=== PATIENT | female | born 1960 | race Caucasian/White ===

== ENCOUNTER 2023-02-21 14:28 | Inpatient (IN) ==
[2023-02-21] MEDS ORDERED: IPRATROPIUM/ALBUTEROL 3 ML AMPUL.NEB NEB ONE (15:08)
[2023-02-21 15:38] LABS: Basophils # (Auto) 0.02 K/mcL (0.00-0.30); Basophils % (Auto) 0.2 % (0.0-2.0); Eosinophils # (Auto) 0 K/mcL (0.00-0.70); Eosinophils % (Auto) 0 % (0.0-7.0); Hematocrit 32.4 % (34.1-44.9); Hemoglobin 10.2 g/dL (11.2-15.7); Lymphocytes # (Auto) 0.92 K/mcL (1.50-4.80); Lymphocytes % (Auto) 9.5 % (15.5-49.0); Mean Corpuscular HGB Conc 31.5 g/dL (31.0-36.0); Mean Platelet Volume 9.3 fL (8.8-12.5); Monocytes # (Auto) 0.76 K/mcL (0.10-0.90); Monocytes % (Auto) 7.9 % (1.0-12.0); Neutrophils % (Auto) 80.5 % (38.0-78.0); Platelet Count 285 K/mcL (140-440); Red Cell Distribution Width 13.8 % (11.5-14.5); WBC 9.6 K/mcL (4.5-11.0)
[2023-02-21 16:07] LABS: ALT/SGPT 220 U/L (<40); AST/SGOT 761 U/L (<32); Albumin 4.5 gm/dL (3.2-5.2); Albumin/Globulin Ratio 1.4 (1.0-2.3); Alkaline Phosphatase 91 U/L (39-117); Bilirubin,Total 0.6 mg/dL (0.1-1.0); Blood Urea Nitrogen 37 mg/dL (8-23); Calcium 8.2 mg/dL (8.6-10.4); Carbon Dioxide 20 mmol/L (22-30); Chloride 79 mmol/L (96-108); Globulin 3.2 gm/dL (2.2-3.7); Glomerular Filtration Rate 13; Glucose 143 mg/dL (70-105)
[2023-02-21] MEDS ORDERED: ALBUTEROL SULFATE 2.5 MG/3 ML NEBULIZER NEB ONE ×2 (17:02→19:04)
[2023-02-21] MEDS ORDERED: 0.9 % SODIUM CHLORIDE 500 ML IV ONE (17:05)
[2023-02-21 18:29] LABS: ABG Methemoglobin 0.4 % (0.4-1.5); Total Hemoglobin 11.5 gm/Dl (12.0-15.0); VBG Base Excess -10 (-2-3); VBG HCO3 20.4 mmol/L (24.0-28.0); VBG Oxygen Saturation 74.9 % (40.0-70.0); VBG PCO2 64.5 mmHg (41.0-51.0); VBG PH 7.12 U (7.32-7.42); VBG PO2 54.5 mmHg (25.0-40.0); VBG Total CO2 22.3 mmol/L (25.0-29.0)
[2023-02-21] MEDS ORDERED: methylPREDNISolone SOD SUCC 125 MG/2 ML VIAL IV ONE (18:33)
[2023-02-21 18:50] LABS: Alcohol, Blood < 10.1 mg/dL; Alcohol,Blood < 0.010 gm/dL (<0.010)
[2023-02-21 21:31] LABS: Appearance,Urine HAZY (Clear); Bacteria,Urine FEW /hpf (0); Bilirubin,Urine Negative (Negative); Color,Urine AMBER; Culture Indicated,Urine No; Glucose,Urine (UA) Negative (Negative); Ketones,Urine 5 mg/dL (Negative); Leukocyte Esterase,Urine Negative /uL (Negative); Mucus,Urine FEW /hpf; Nitrate,Urine Negative (Negative); Protein,Urine 100 mg/dL (Negative); Specific Gravity,Urine 1.012 (1.000-1.035); Urine Blood 0.03 mg/dL (Negative); Urine Hyaline Cast 10 /lph (0-2); Urine RBC 1 /hpf (0-3); Urine Squamous Epithelial Cell 7 /hpf (0-4); Urine WBC 1 /hpf (0-4); Urobilinogen,Urine Negative
[2023-02-21 21:32] LABS: Blood Urea Nitrogen 38 mg/dL (8-23)
[2023-02-21 21:33] LABS: Uric Acid 14.2 mg/dL (2.5-8.0)
[2023-02-21] MEDS ORDERED: MAGNESIUM SULFATE 2 GM/50 ML BAG IV ONE ×2 (21:56→23:04)
[2023-02-21] MEDS ORDERED: cefTRIAXone 2 GM in DEXTROSE 5% IN WATER 50 ML IV ONE (21:56)
[2023-02-21] MEDS ORDERED: POTASSIUM CHLORIDE 40 MEQ in DEXTROSE 5% IN WATER 500 ML IV PRN (23:02)
[2023-02-21] MEDS ORDERED: POTASSIUM CHLORIDE 20 MEQ TABLET PO PRN (23:02)
[2023-02-21] MEDS ORDERED: ONDANSETRON 4 MG/2 ML VIAL IV PRN (23:02)
[2023-02-21] MEDS ORDERED: POLYETHYLENE GLYCOL 3350 17 GM PACKET PO PRN (23:02)
[2023-02-21] MEDS ORDERED: ENOXAPARIN 40 MG/0.4 ML SYRINGE SQ SCH (23:02)
[2023-02-21] MEDS ORDERED: DEXTROSE 31 GM ORAL.SUSP PO PRN (23:02)
[2023-02-21] MEDS ORDERED: SENNOSIDES 1 TABLET PO PRN (23:02)
[2023-02-21] MEDS ORDERED: DEXTROSE 50% 50 ML VIAL IV PRN (23:02)
[2023-02-21] MEDS ORDERED: cefTRIAXone 2 GM VIAL ONE (23:03)
[2023-02-21] MEDS ORDERED: methylPREDNISolone SOD SUCC 125 MG/2 ML VIAL ONE (23:07)
[2023-02-21] MEDS: BUDESONIDE 0.5 MG/2 ML AMPUL.NEB NEB SCH (23:35)
[2023-02-21] MEDS: IPRATROPIUM/ALBUTEROL 3 ML AMPUL.NEB NEB PRN (23:37)
[2023-02-21] MEDS: methylPREDNISolone SOD SUCC 125 MG/2 ML VIAL IV SCH (23:41)
[2023-02-21] MEDS ORDERED: ENOXAPARIN 40 MG/0.4 ML SYRINGE ONE (23:46)
[2023-02-21] MEDS: MAGNESIUM SULFATE 2 GM/50 ML BAG IV PRN (23:52)
[2023-02-22] MEDS: IPRATROPIUM/ALBUTEROL 3 ML AMPUL.NEB NEB SCH ×4 (01:29→18:20)
[2023-02-22] MEDS: 0.9 % SODIUM CHLORIDE 1,000 ML IV SCH ×3 (02:06→10:11)
[2023-02-22 06:09] LABS: Basophils # (Auto) 0.01 K/mcL (0.00-0.30); Basophils % (Auto) 0.1 % (0.0-2.0); Eosinophils # (Auto) 0 K/mcL (0.00-0.70); Eosinophils % (Auto) 0 % (0.0-7.0); Hematocrit 30.8 % (34.1-44.9); Hemoglobin 9.8 g/dL (11.2-15.7); Lymphocytes # (Auto) 0.48 K/mcL (1.50-4.80); Lymphocytes % (Auto) 4.7 % (15.5-49.0); Mean Cell Volume 90.3 fL (80.0-100.0); Mean Corpuscular HGB Conc 31.8 g/dL (31.0-36.0); Mean Platelet Volume 9.3 fL (8.8-12.5); Monocytes # (Auto) 0.21 K/mcL (0.10-0.90); Monocytes % (Auto) 2.1 % (1.0-12.0); Neutrophils % (Auto) 91.9 % (38.0-78.0); Platelet Count 265 K/mcL (140-440); RBC 3.41 M/mcL (3.59-5.38); Red Cell Distribution Width 13.7 % (11.5-14.5); WBC 10.2 K/mcL (4.5-11.0)
[2023-02-22] MEDS ORDERED: IPRATROPIUM/ALBUTEROL 3 ML AMPUL.NEB NEB ONE (06:17)
[2023-02-22] MEDS ORDERED: BUDESONIDE 0.5 MG/2 ML AMPUL.NEB ONE (06:18)
[2023-02-22] MEDS: BUDESONIDE 0.5 MG/2 ML AMPUL.NEB NEB SCH ×3 (06:18→19:53)
[2023-02-22 06:26] LABS: ALT/SGPT 185 U/L (<40); AST/SGOT 439 U/L (<32); Albumin 4.2 gm/dL (3.2-5.2); Albumin/Globulin Ratio 1.3 (1.0-2.3); Alkaline Phosphatase 84 U/L (39-117); Bilirubin,Direct 0.4 mg/dL (<0.3); Bilirubin,Total 0.5 mg/dL (0.1-1.0); Blood Urea Nitrogen 39 mg/dL (8-23); Calcium 8.1 mg/dL (8.6-10.4); Carbon Dioxide 22 mmol/L (22-30); Chloride 83 mmol/L (96-108); Globulin 3.2 gm/dL (2.2-3.7); Glomerular Filtration Rate 17; Glucose 181 mg/dL (70-105); Lactate Dehydrogenase 323 U/L (135-225); Phosphorous 6.2 mg/dL (2.5-4.5); Triglycerides 174 mg/dL (<150); Uric Acid 13.4 mg/dL (2.5-8.0)
[2023-02-22] MEDS: INSULIN LISPRO 1 UNIT/0.01 ML UNIT SQ SCH ×4 (08:04→21:50)
[2023-02-22] MEDS: DOCUSATE SODIUM 100 MG CAPSULE PO SCH ×2 (08:04→21:41)
[2023-02-22] MEDS: AZITHROMYCIN 250 MG TABLET PO SCH (08:29)
[2023-02-22] MEDS: methylPREDNISolone SOD SUCC 125 MG/2 ML VIAL IV SCH ×3 (08:29→21:40)
[2023-02-22] MEDS: ENOXAPARIN 30 MG/0.3 ML SYRINGE SQ SCH ×2 (08:30→21:39)
[2023-02-22] MEDS: METOPROLOL SUCCINATE 50 MG TAB.XL.24H PO SCH ×2 (09:20→21:38)
[2023-02-22] MEDS: LEVOTHYROXINE 50 MCG TABLET PO SCH (09:20)
[2023-02-22] MEDS: OMEPRAZOLE 20 MG CAPSULE PO SCH ×2 (09:20→16:47)
[2023-02-22] MEDS: busPIRone 15 MG TABLET PO SCH ×2 (09:21→21:38)
[2023-02-22] MEDS: PRIMIDONE 50 MG TABLET PO SCH ×2 (09:21→21:39)
[2023-02-22] MEDS: BUPRENORPHINE HCL 2 MG TAB.SUBL SL SCH ×2 (09:23→16:47)
[2023-02-22] MEDS: IPRATROPIUM/ALBUTEROL 3 ML AMPUL.NEB NEB PRN (10:20)
[2023-02-22] MEDS: DOXEPIN 25 MG CAPSULE PO SCH (21:38)
[2023-02-23] MEDS: BUPRENORPHINE HCL 2 MG TAB.SUBL SL SCH ×3 (00:43→20:43)
[2023-02-23] MEDS: IPRATROPIUM/ALBUTEROL 3 ML AMPUL.NEB NEB SCH ×4 (01:35→18:49)
[2023-02-23 06:30] LABS: ALT/SGPT 143 U/L (<40); AST/SGOT 139 U/L (<32); Albumin 4.3 gm/dL (3.2-5.2); Albumin/Globulin Ratio 1.4 (1.0-2.3); Alkaline Phosphatase 83 U/L (39-117); Bilirubin,Direct 0.2 mg/dL (<0.3); Bilirubin,Total 0.3 mg/dL (0.1-1.0); Blood Urea Nitrogen 39 mg/dL (8-23); Calcium 8.3 mg/dL (8.6-10.4); Carbon Dioxide 26 mmol/L (22-30); Chloride 87 mmol/L (96-108); Globulin 3.1 gm/dL (2.2-3.7); Glomerular Filtration Rate 27; Glucose 145 mg/dL (70-105); Lactate Dehydrogenase 230 U/L (135-225); Phosphorous 3.9 mg/dL (2.5-4.5); Triglycerides 162 mg/dL (<150); Uric Acid 10.8 mg/dL (2.5-8.0)
[2023-02-23] MEDS: INSULIN LISPRO 1 UNIT/0.01 ML UNIT SQ SCH ×4 (06:57→20:40)
[2023-02-23] MEDS: LEVOTHYROXINE 50 MCG TABLET PO SCH (06:58)
[2023-02-23] MEDS: OMEPRAZOLE 20 MG CAPSULE PO SCH ×2 (06:58→17:02)
[2023-02-23] MEDS ORDERED: 0.9 % SODIUM CHLORIDE 500 ML IV ONE (07:48)
[2023-02-23] MEDS: busPIRone 15 MG TABLET PO SCH ×2 (09:11→20:43)
[2023-02-23] MEDS: AZITHROMYCIN 250 MG TABLET PO SCH (09:12)
[2023-02-23] MEDS: DOCUSATE SODIUM 100 MG CAPSULE PO SCH ×2 (09:12→20:41)
[2023-02-23] MEDS: ENOXAPARIN 30 MG/0.3 ML SYRINGE SQ SCH ×2 (09:13→20:40)
[2023-02-23] MEDS: PRIMIDONE 50 MG TABLET PO SCH ×2 (09:13→20:43)
[2023-02-23] MEDS: METOPROLOL SUCCINATE 50 MG TAB.XL.24H PO SCH ×2 (09:14→20:42)
[2023-02-23] MEDS: methylPREDNISolone SOD SUCC 125 MG/2 ML VIAL IV SCH (09:20)
[2023-02-23] MEDS ORDERED: BUPRENORPHINE HCL 2 MG TAB.SUBL SL PRN (13:20)
[2023-02-23] MEDS: methylPREDNISolone SOD SUCC 40 MG/ML VIAL IV SCH ×2 (13:49→20:48)
[2023-02-23] MEDS: BUDESONIDE 0.5 MG/2 ML AMPUL.NEB NEB SCH ×2 (17:00→18:49)
[2023-02-23] MEDS: DOXEPIN 25 MG CAPSULE PO SCH (20:43)
[2023-02-24] MEDS: IPRATROPIUM/ALBUTEROL 3 ML AMPUL.NEB NEB SCH ×4 (01:02→19:47)
[2023-02-24] MEDS ORDERED: LORazepam 2 MG/ML VIAL ONE (04:03)
[2023-02-24] MEDS: LORazepam 2 MG/ML VIAL IV PRN ×3 (04:07→19:28)
[2023-02-24] MEDS: methylPREDNISolone SOD SUCC 40 MG/ML VIAL IV SCH ×2 (06:56→20:39)
[2023-02-24 07:10] LABS: ALT/SGPT 121 U/L (<40); AST/SGOT 99 U/L (<32); Albumin 3.9 gm/dL (3.2-5.2); Albumin/Globulin Ratio 1.4 (1.0-2.3); Alkaline Phosphatase 79 U/L (39-117); Bilirubin,Direct 0.3 mg/dL (<0.3); Bilirubin,Total 0.3 mg/dL (0.1-1.0); Blood Urea Nitrogen 36 mg/dL (8-23); Calcium 8.5 mg/dL (8.6-10.4); Carbon Dioxide 29 mmol/L (22-30); Chloride 91 mmol/L (96-108); Globulin 2.7 gm/dL (2.2-3.7); Glomerular Filtration Rate 40; Glucose 134 mg/dL (70-105); Lactate Dehydrogenase 210 U/L (135-225); Phosphorous 2.9 mg/dL (2.5-4.5); Triglycerides 150 mg/dL (<150); Uric Acid 9.6 mg/dL (2.5-8.0)
[2023-02-24] MEDS ORDERED: chlordiazePOXIDE 25 MG CAPSULE PO PRN (07:33)
[2023-02-24] MEDS: INSULIN LISPRO 1 UNIT/0.01 ML UNIT SQ SCH ×4 (07:39→20:38)
[2023-02-24] MEDS ORDERED: 0.9 % SODIUM CHLORIDE 750 ML IV ONE ×2 (07:41→08:46)
[2023-02-24] MEDS: ENOXAPARIN 30 MG/0.3 ML SYRINGE SQ SCH ×2 (08:23→20:38)
[2023-02-24] MEDS: 0.9 % SODIUM CHLORIDE 10 ML SYRINGE IV SCH ×3 (08:23→21:31)
[2023-02-24] MEDS: LEVOTHYROXINE 50 MCG TABLET PO SCH (08:24)
[2023-02-24] MEDS: busPIRone 15 MG TABLET PO SCH ×2 (08:24→19:10)
[2023-02-24] MEDS: DOCUSATE SODIUM 100 MG CAPSULE PO SCH ×2 (08:24→19:39)
[2023-02-24] MEDS: OMEPRAZOLE 20 MG CAPSULE PO SCH ×2 (08:24→16:52)
[2023-02-24] MEDS: AZITHROMYCIN 250 MG TABLET PO SCH (08:24)
[2023-02-24] MEDS: METOPROLOL SUCCINATE 50 MG TAB.XL.24H PO SCH ×2 (08:25→19:11)
[2023-02-24] MEDS: BUPRENORPHINE HCL 2 MG TAB.SUBL SL SCH ×2 (08:27→19:11)
[2023-02-24] MEDS: MULTIVIT,THER IRON,CA,FA & MIN 1 TABLET PO SCH (08:33)
[2023-02-24] MEDS: THIAMINE 100 MG TABLET PO SCH (08:33)
[2023-02-24] MEDS: FOLIC ACID 1 MG TABLET PO SCH (08:33)
[2023-02-24] MEDS: PRIMIDONE 50 MG TABLET PO SCH ×2 (08:34→19:10)
[2023-02-24 08:45] LABS: INR 1.1 (0.9-1.1); Prothrombin Time 15.1 sec (11.9-14.5)
[2023-02-24] MEDS: BUDESONIDE 0.5 MG/2 ML AMPUL.NEB NEB SCH ×2 (16:11→19:47)
[2023-02-24] MEDS: MAGNESIUM SULFATE 2 GM/50 ML BAG IV PRN (16:52)
[2023-02-24] MEDS: DOXEPIN 25 MG CAPSULE PO SCH (19:11)
[2023-02-25] MEDS: IPRATROPIUM/ALBUTEROL 3 ML AMPUL.NEB NEB SCH ×4 (01:05→18:15)
[2023-02-25] MEDS: 0.9 % SODIUM CHLORIDE 10 ML SYRINGE IV SCH ×3 (05:57→21:25)
[2023-02-25] MEDS: LORazepam 2 MG/ML VIAL IV PRN (06:25)
[2023-02-25] MEDS: BUDESONIDE 0.5 MG/2 ML AMPUL.NEB NEB SCH ×2 (06:35→21:29)
[2023-02-25 06:50] LABS: ALT/SGPT 135 U/L (<40); AST/SGOT 88 U/L (<32); Albumin 4.4 gm/dL (3.2-5.2); Albumin/Globulin Ratio 1.5 (1.0-2.3); Alkaline Phosphatase 89 U/L (39-117); Bilirubin,Direct 0.3 mg/dL (<0.3); Bilirubin,Total 0.3 mg/dL (0.1-1.0); Blood Urea Nitrogen 31 mg/dL (8-23); Calcium 8.8 mg/dL (8.6-10.4); Carbon Dioxide 31 mmol/L (22-30); Chloride 94 mmol/L (96-108); Glomerular Filtration Rate 43; Glucose 136 mg/dL (70-105); Lactate Dehydrogenase 209 U/L (135-225); Phosphorous 4.3 mg/dL (2.5-4.5); Triglycerides 168 mg/dL (<150); Uric Acid 8.6 mg/dL (2.5-8.0)
[2023-02-25] MEDS: INSULIN LISPRO 1 UNIT/0.01 ML UNIT SQ SCH ×4 (08:19→20:48)
[2023-02-25 08:47] LABS: Basophils # (Auto) 0.02 K/mcL (0.00-0.30); Basophils % (Auto) 0.2 % (0.0-2.0); Eosinophils # (Auto) 0.01 K/mcL (0.00-0.70); Eosinophils % (Auto) 0.1 % (0.0-7.0); Hematocrit 35.7 % (34.1-44.9); Hemoglobin 10.3 g/dL (11.2-15.7); Lymphocytes # (Auto) 1.24 K/mcL (1.50-4.80); Lymphocytes % (Auto) 9.4 % (15.5-49.0); Mean Cell Volume 98.3 fL (80.0-100.0); Mean Corpuscular HGB Conc 28.9 g/dL (31.0-36.0); Mean Platelet Volume 9.1 fL (8.8-12.5); Monocytes # (Auto) 0.98 K/mcL (0.10-0.90); Monocytes % (Auto) 7.4 % (1.0-12.0); Neutrophils % (Auto) 81.5 % (38.0-78.0); Platelet Count 328 K/mcL (140-440); RBC 3.63 M/mcL (3.59-5.38); Red Cell Distribution Width 14.8 % (11.5-14.5); WBC 13.2 K/mcL (4.5-11.0)
[2023-02-25] MEDS ORDERED: FUROSEMIDE 40 MG/4 ML VIAL IV ONE ×2 (09:13→16:00)
[2023-02-25] MEDS: MULTIVIT,THER IRON,CA,FA & MIN 1 TABLET PO SCH ×2 (09:57→10:27)
[2023-02-25] MEDS: FOLIC ACID 1 MG TABLET PO SCH ×2 (09:57→10:27)
[2023-02-25] MEDS: methylPREDNISolone SOD SUCC 40 MG/ML VIAL IV SCH (09:57)
[2023-02-25] MEDS: LEVOTHYROXINE 50 MCG TABLET PO SCH ×2 (09:57→10:27)
[2023-02-25] MEDS: DOCUSATE SODIUM 100 MG CAPSULE PO SCH ×2 (09:58→21:24)
[2023-02-25] MEDS: BUPRENORPHINE HCL 2 MG TAB.SUBL SL SCH ×3 (09:58→21:25)
[2023-02-25] MEDS: METOPROLOL SUCCINATE 50 MG TAB.XL.24H PO SCH ×3 (09:58→21:19)
[2023-02-25] MEDS: OMEPRAZOLE 20 MG CAPSULE PO SCH ×3 (09:58→17:00)
[2023-02-25] MEDS: THIAMINE 100 MG TABLET PO SCH ×2 (09:58→10:28)
[2023-02-25] MEDS: busPIRone 15 MG TABLET PO SCH ×3 (09:58→21:20)
[2023-02-25] MEDS: ENOXAPARIN 30 MG/0.3 ML SYRINGE SQ SCH ×2 (09:58→21:20)
[2023-02-25] MEDS: PRIMIDONE 50 MG TABLET PO SCH ×3 (09:59→21:23)
[2023-02-25] MEDS: DULoxetine 30 MG CAPSULE PO SCH (12:13)
[2023-02-25 12:39] LABS: Lymphocytes % 14 % (15-49); Monocytes % (Manual) 4 % (1-12); Nucleated Red Blood Cells 3 % (0-0); Platelet Estimate NORMAL (Normal); RBC Morphology NORMAL (Normal); Segmented Neutrophils % 82 % (38-78)
[2023-02-25] MEDS ORDERED: KETAMINE IV ONE (13:47)
[2023-02-25] MEDS ORDERED: SODIUM CHLORIDE 0.9% IV ONE (13:47)
[2023-02-25] MEDS: CEFEPIME 2 GM VIAL IV SCH ×2 (15:30→22:48)
[2023-02-25] MEDS: predniSONE 20 MG TABLET PO SCH (21:19)
[2023-02-25] MEDS: DOXAZOSIN 1 MG TABLET PO SCH (21:24)
[2023-02-25] MEDS: DOXEPIN 25 MG CAPSULE PO SCH (21:24)
[2023-02-25] MEDS ORDERED: DEXMEDETOMIDINE 100 ML IV ONE (22:36)
[2023-02-25] MEDS: DEXMEDETOMIDINE 400 MCG in PREMIX 1 BAG IV PRN (22:47)
[2023-02-26] MEDS: IPRATROPIUM/ALBUTEROL 3 ML AMPUL.NEB NEB SCH ×4 (01:00→18:24)
[2023-02-26] MEDS ORDERED: DEXMEDETOMIDINE 100 ML IV ONE ×8 (02:19→23:51)
[2023-02-26] MEDS: DEXMEDETOMIDINE 400 MCG in PREMIX 1 BAG IV PRN ×9 (02:22→23:52)
[2023-02-26] MEDS: 0.9 % SODIUM CHLORIDE 10 ML SYRINGE IV SCH ×3 (05:24→21:48)
[2023-02-26] MEDS: BUDESONIDE 0.5 MG/2 ML AMPUL.NEB NEB SCH ×3 (06:28→22:20)
[2023-02-26 07:21] LABS: Basophils # (Auto) 0.02 K/mcL (0.00-0.30); Basophils % (Auto) 0.1 % (0.0-2.0); Eosinophils # (Auto) 0.01 K/mcL (0.00-0.70); Eosinophils % (Auto) 0.1 % (0.0-7.0); Hematocrit 32.1 % (34.1-44.9); Hemoglobin 9.7 g/dL (11.2-15.7); Lymphocytes # (Auto) 0.68 K/mcL (1.50-4.80); Lymphocytes % (Auto) 4.2 % (15.5-49.0); Mean Cell Volume 93.9 fL (80.0-100.0); Mean Corpuscular HGB Conc 30.2 g/dL (31.0-36.0); Mean Platelet Volume 9.1 fL (8.8-12.5); Monocytes # (Auto) 1.18 K/mcL (0.10-0.90); Monocytes % (Auto) 7.3 % (1.0-12.0); Neutrophils % (Auto) 87.7 % (38.0-78.0); Platelet Count 259 K/mcL (140-440); RBC 3.42 M/mcL (3.59-5.38); Red Cell Distribution Width 14.5 % (11.5-14.5); WBC 16.2 K/mcL (4.5-11.0)
[2023-02-26 07:42] LABS: ALT/SGPT 88 U/L (<40); AST/SGOT 48 U/L (<32); Albumin 3.9 gm/dL (3.2-5.2); Albumin/Globulin Ratio 1.3 (1.0-2.3); Alkaline Phosphatase 90 U/L (39-117); Bilirubin,Direct 0.4 mg/dL (<0.3); Bilirubin,Total 0.6 mg/dL (0.1-1.0); Blood Urea Nitrogen 23 mg/dL (8-23); Calcium 8.9 mg/dL (8.6-10.4); Carbon Dioxide 33 mmol/L (22-30); Chloride 94 mmol/L (96-108); Globulin 3.1 gm/dL (2.2-3.7); Glomerular Filtration Rate 53; Glucose 179 mg/dL (70-105); Lactate Dehydrogenase 333 U/L (135-225); Phosphorous 1.3 mg/dL (2.5-4.5); Triglycerides 131 mg/dL (<150)
[2023-02-26] MEDS ORDERED: LORazepam 2 MG/ML VIAL IV PRN (08:04)
[2023-02-26] MEDS ORDERED: MAGNESIUM SULFATE 2 GM/50 ML BAG IV ONE (08:36)
[2023-02-26] MEDS: LEVOTHYROXINE 50 MCG TABLET PO SCH (08:38)
[2023-02-26] MEDS: OMEPRAZOLE 20 MG CAPSULE PO SCH ×2 (08:38→16:48)
[2023-02-26] MEDS: FUROSEMIDE 40 MG/4 ML VIAL IV SCH ×2 (08:50→15:52)
[2023-02-26] MEDS: INSULIN LISPRO 1 UNIT/0.01 ML UNIT SQ SCH ×4 (08:50→20:43)
[2023-02-26] MEDS: FOLIC ACID 1 MG TABLET PO SCH (08:51)
[2023-02-26] MEDS: DULoxetine 30 MG CAPSULE PO SCH (08:51)
[2023-02-26] MEDS: busPIRone 15 MG TABLET PO SCH ×2 (08:51→21:27)
[2023-02-26] MEDS: DOCUSATE SODIUM 100 MG CAPSULE PO SCH ×2 (08:51→21:27)
[2023-02-26] MEDS: MULTIVIT,THER IRON,CA,FA & MIN 1 TABLET PO SCH (08:54)
[2023-02-26] MEDS: PRIMIDONE 50 MG TABLET PO SCH ×2 (08:54→21:27)
[2023-02-26] MEDS: predniSONE 20 MG TABLET PO SCH (08:55)
[2023-02-26] MEDS: METOPROLOL SUCCINATE 50 MG TAB.XL.24H PO SCH ×2 (08:55→21:28)
[2023-02-26] MEDS: BUPRENORPHINE HCL 2 MG TAB.SUBL SL SCH ×3 (08:55→20:50)
[2023-02-26] MEDS: THIAMINE 100 MG TABLET PO SCH (08:55)
[2023-02-26] MEDS: CEFEPIME 2 GM VIAL IV SCH ×2 (08:59→20:49)
[2023-02-26] MEDS: ENOXAPARIN 30 MG/0.3 ML SYRINGE SQ SCH ×2 (08:59→20:50)
[2023-02-26] MEDS ORDERED: POTASSIUM PHOSPHATE 40 MEQ in DEXTROSE 5% IN WATER 500 ML IV ONE (09:00)
[2023-02-26] MEDS: acetaZOLAMIDE SOD 500 MG VIAL IV SCH (09:11)
[2023-02-26] MEDS: HYDROmorphone 1 MG/ML SYRINGE IV PRN ×2 (12:17→22:04)
[2023-02-26] MEDS: methylPREDNISolone SOD SUCC 40 MG/ML VIAL IV SCH (12:49)
[2023-02-26] MEDS: ACETAMINOPHEN 1,000 MG/100 ML BAG IV SCH ×2 (14:10→21:39)
[2023-02-26] MEDS: HALOPERIDOL LACTATE 5 MG/ML VIAL IV PRN ×2 (17:04→22:37)
[2023-02-26] MEDS: DOXAZOSIN 1 MG TABLET PO SCH (21:27)
[2023-02-26] MEDS: DOXEPIN 25 MG CAPSULE PO SCH (21:28)
[2023-02-27] MEDS: IPRATROPIUM/ALBUTEROL 3 ML AMPUL.NEB NEB SCH ×4 (00:13→19:01)
[2023-02-27] MEDS ORDERED: PREMIX 1 BAG IV ONE (02:10)
[2023-02-27] MEDS: DEXMEDETOMIDINE 400 MCG in PREMIX 1 BAG IV PRN ×2 (02:29→06:43)
[2023-02-27] MEDS: HALOPERIDOL LACTATE 5 MG/ML VIAL IV PRN (02:29)
[2023-02-27] MEDS: HYDROmorphone 1 MG/ML SYRINGE IV PRN (04:28)
[2023-02-27] MEDS: ACETAMINOPHEN 1,000 MG/100 ML BAG IV SCH ×3 (05:38→22:13)
[2023-02-27] MEDS: 0.9 % SODIUM CHLORIDE 10 ML SYRINGE IV SCH ×3 (05:39→20:11)
[2023-02-27 06:40] LABS: Basophils # (Auto) 0.03 K/mcL (0.00-0.30); Basophils % (Auto) 0.2 % (0.0-2.0); Hematocrit 29.8 % (34.1-44.9); Hemoglobin 9.2 g/dL (11.2-15.7); Lymphocytes # (Auto) 0.89 K/mcL (1.50-4.80); Lymphocytes % (Auto) 5.3 % (15.5-49.0); Mean Cell Volume 92.3 fL (80.0-100.0); Mean Corpuscular HGB Conc 30.9 g/dL (31.0-36.0); Monocytes # (Auto) 1.09 K/mcL (0.10-0.90); Monocytes % (Auto) 6.4 % (1.0-12.0); Neutrophils % (Auto) 84.5 % (38.0-78.0); Platelet Count 288 K/mcL (140-440); RBC 3.23 M/mcL (3.59-5.38); Red Cell Distribution Width 14.7 % (11.5-14.5); WBC 16.9 K/mcL (4.5-11.0)
[2023-02-27] MEDS: BUDESONIDE 0.5 MG/2 ML AMPUL.NEB NEB SCH ×2 (06:52→19:01)
[2023-02-27 06:59] LABS: ALT/SGPT 58 U/L (<40); AST/SGOT 23 U/L (<32); Albumin 3.3 gm/dL (3.2-5.2); Alkaline Phosphatase 77 U/L (39-117); Bilirubin,Direct 0.4 mg/dL (<0.3); Bilirubin,Total 0.6 mg/dL (0.1-1.0); Blood Urea Nitrogen 23 mg/dL (8-23); Calcium 8.8 mg/dL (8.6-10.4); Carbon Dioxide 35 mmol/L (22-30); Chloride 89 mmol/L (96-108); Globulin 3.4 gm/dL (2.2-3.7); Glomerular Filtration Rate 53; Glucose 138 mg/dL (70-105); Lactate Dehydrogenase 189 U/L (135-225); Phosphorous 2.5 mg/dL (2.5-4.5); Triglycerides 130 mg/dL (<150); Uric Acid 7.5 mg/dL (2.5-8.0)
[2023-02-27] MEDS: INSULIN LISPRO 1 UNIT/0.01 ML UNIT SQ SCH ×4 (07:52→20:16)
[2023-02-27] MEDS: OMEPRAZOLE 20 MG CAPSULE PO SCH ×2 (07:58→17:04)
[2023-02-27] MEDS: LEVOTHYROXINE 50 MCG TABLET PO SCH (07:58)
[2023-02-27] MEDS: busPIRone 15 MG TABLET PO SCH ×2 (08:22→20:11)
[2023-02-27] MEDS: DULoxetine 30 MG CAPSULE PO SCH (08:22)
[2023-02-27] MEDS: DOCUSATE SODIUM 100 MG CAPSULE PO SCH ×2 (08:22→20:11)
[2023-02-27] MEDS: THIAMINE 100 MG TABLET PO SCH (08:23)
[2023-02-27] MEDS: PRIMIDONE 50 MG TABLET PO SCH ×2 (08:23→20:08)
[2023-02-27] MEDS: METOPROLOL SUCCINATE 50 MG TAB.XL.24H PO SCH ×2 (08:23→20:08)
[2023-02-27] MEDS: MULTIVIT,THER IRON,CA,FA & MIN 1 TABLET PO SCH (08:23)
[2023-02-27] MEDS: FOLIC ACID 1 MG TABLET PO SCH (08:23)
[2023-02-27] MEDS: acetaZOLAMIDE SOD 500 MG VIAL IV SCH (10:40)
[2023-02-27] MEDS: CEFEPIME 2 GM VIAL IV SCH ×2 (10:40→20:07)
[2023-02-27] MEDS: FUROSEMIDE 40 MG/4 ML VIAL IV SCH ×2 (10:40→16:45)
[2023-02-27] MEDS: BUPRENORPHINE HCL 2 MG TAB.SUBL SL SCH ×2 (10:41→20:09)
[2023-02-27] MEDS: ENOXAPARIN 30 MG/0.3 ML SYRINGE SQ SCH ×2 (10:41→20:07)
[2023-02-27] MEDS: methylPREDNISolone SOD SUCC 40 MG/ML VIAL IV SCH (10:52)
[2023-02-27] MEDS: DOXAZOSIN 1 MG TABLET PO SCH (20:08)
[2023-02-27] MEDS: POTASSIUM CHLORIDE 20 MEQ TABLET PO PRN (20:08)
[2023-02-27] MEDS: DOXEPIN 25 MG CAPSULE PO SCH (20:10)
[2023-02-27] MEDS: MAGNESIUM SULFATE 2 GM/50 ML BAG IV PRN (20:17)
[2023-02-28] MEDS: IPRATROPIUM/ALBUTEROL 3 ML AMPUL.NEB NEB SCH ×4 (01:02→19:13)
[2023-02-28] MEDS: 0.9 % SODIUM CHLORIDE 10 ML SYRINGE IV SCH ×3 (05:22→20:03)
[2023-02-28] MEDS: ACETAMINOPHEN 1,000 MG/100 ML BAG IV SCH ×3 (05:32→21:01)
[2023-02-28 06:45] LABS: Basophils # (Auto) 0.03 K/mcL (0.00-0.30); Basophils % (Auto) 0.2 % (0.0-2.0); Eosinophils # (Auto) 0.64 K/mcL (0.00-0.70); Eosinophils % (Auto) 4.2 % (0.0-7.0); Hematocrit 32.6 % (34.1-44.9); Lymphocytes # (Auto) 0.93 K/mcL (1.50-4.80); Lymphocytes % (Auto) 6.1 % (15.5-49.0); Mean Cell Volume 92.4 fL (80.0-100.0); Mean Corpuscular HGB Conc 30.7 g/dL (31.0-36.0); Mean Platelet Volume 9.3 fL (8.8-12.5); Monocytes % (Auto) 7.9 % (1.0-12.0); Neutrophils % (Auto) 80.4 % (38.0-78.0); Platelet Count 344 K/mcL (140-440); RBC 3.53 M/mcL (3.59-5.38); Red Cell Distribution Width 14.8 % (11.5-14.5); WBC 15.3 K/mcL (4.5-11.0)
[2023-02-28] MEDS: BUDESONIDE 0.5 MG/2 ML AMPUL.NEB NEB SCH ×2 (07:01→19:13)
[2023-02-28 07:02] LABS: ALT/SGPT 43 U/L (<40); AST/SGOT 20 U/L (<32); Albumin 3.3 gm/dL (3.2-5.2); Albumin/Globulin Ratio 0.9 (1.0-2.3); Alkaline Phosphatase 80 U/L (39-117); Bilirubin,Direct 0.3 mg/dL (<0.3); Bilirubin,Total 0.4 mg/dL (0.1-1.0); Blood Urea Nitrogen 26 mg/dL (8-23); Calcium 9.2 mg/dL (8.6-10.4); Carbon Dioxide 37 mmol/L (22-30); Chloride 90 mmol/L (96-108); Globulin 3.7 gm/dL (2.2-3.7); Glomerular Filtration Rate 53; Glucose 109 mg/dL (70-105); Lactate Dehydrogenase 170 U/L (135-225); Phosphorous 3.7 mg/dL (2.5-4.5); Triglycerides 188 mg/dL (<150); Uric Acid 7.4 mg/dL (2.5-8.0)
[2023-02-28] MEDS: INSULIN LISPRO 1 UNIT/0.01 ML UNIT SQ SCH ×4 (07:38→20:13)
[2023-02-28] MEDS: LEVOTHYROXINE 50 MCG TABLET PO SCH (07:47)
[2023-02-28] MEDS: OMEPRAZOLE 20 MG CAPSULE PO SCH ×2 (07:47→16:52)
[2023-02-28] MEDS: DOCUSATE SODIUM 100 MG CAPSULE PO SCH ×2 (08:37→19:50)
[2023-02-28] MEDS: busPIRone 15 MG TABLET PO SCH ×2 (08:55→20:02)
[2023-02-28] MEDS: BUPRENORPHINE HCL 2 MG TAB.SUBL SL SCH ×2 (08:56→20:02)
[2023-02-28] MEDS: METOPROLOL SUCCINATE 50 MG TAB.XL.24H PO SCH ×2 (08:56→20:02)
[2023-02-28] MEDS: PRIMIDONE 50 MG TABLET PO SCH ×2 (08:56→20:02)
[2023-02-28] MEDS: MULTIVIT,THER IRON,CA,FA & MIN 1 TABLET PO SCH (08:57)
[2023-02-28] MEDS: ENOXAPARIN 30 MG/0.3 ML SYRINGE SQ SCH ×2 (08:57→20:03)
[2023-02-28] MEDS: CEFEPIME 2 GM VIAL IV SCH ×2 (08:57→20:01)
[2023-02-28] MEDS: THIAMINE 100 MG TABLET PO SCH (08:57)
[2023-02-28] MEDS: FUROSEMIDE 40 MG/4 ML VIAL IV SCH (08:58)
[2023-02-28] MEDS: FOLIC ACID 1 MG TABLET PO SCH (08:58)
[2023-02-28] MEDS: DULoxetine 30 MG CAPSULE PO SCH (08:58)
[2023-02-28] MEDS: HYDROmorphone 1 MG/ML SYRINGE IV PRN ×2 (09:03→20:14)
[2023-02-28] MEDS: acetaZOLAMIDE SOD 500 MG VIAL IV SCH (09:03)
[2023-02-28] MEDS: FUROSEMIDE 40 MG TABLET PO SCH (16:53)
[2023-02-28] MEDS: DOXAZOSIN 1 MG TABLET PO SCH (20:02)
[2023-02-28] MEDS: DOXEPIN 25 MG CAPSULE PO SCH (20:03)
[2023-03-01] MEDS: IPRATROPIUM/ALBUTEROL 3 ML AMPUL.NEB NEB SCH ×4 (01:10→19:13)
[2023-03-01] MEDS: HYDROmorphone 1 MG/ML SYRINGE IV PRN ×2 (02:13→21:02)
[2023-03-01] MEDS: 0.9 % SODIUM CHLORIDE 10 ML SYRINGE IV SCH ×3 (05:03→22:00)
[2023-03-01] MEDS: ACETAMINOPHEN 1,000 MG/100 ML BAG IV SCH (05:03)
[2023-03-01 06:20] LABS: Basophils # (Auto) 0.03 K/mcL (0.00-0.30); Basophils % (Auto) 0.3 % (0.0-2.0); Eosinophils # (Auto) 0.47 K/mcL (0.00-0.70); Eosinophils % (Auto) 4.3 % (0.0-7.0); Hematocrit 31.1 % (34.1-44.9); Hemoglobin 9.5 g/dL (11.2-15.7); Lymphocytes # (Auto) 1.22 K/mcL (1.50-4.80); Lymphocytes % (Auto) 11.1 % (15.5-49.0); Mean Cell Volume 92.3 fL (80.0-100.0); Mean Corpuscular HGB Conc 30.5 g/dL (31.0-36.0); Mean Platelet Volume 9.3 fL (8.8-12.5); Monocytes # (Auto) 1.19 K/mcL (0.10-0.90); Monocytes % (Auto) 10.8 % (1.0-12.0); Neutrophils % (Auto) 72.1 % (38.0-78.0); Platelet Count 328 K/mcL (140-440); RBC 3.37 M/mcL (3.59-5.38); Red Cell Distribution Width 14.9 % (11.5-14.5)
[2023-03-01 06:35] LABS: ALT/SGPT 28 U/L (<40); AST/SGOT 18 U/L (<32); Albumin 2.9 gm/dL (3.2-5.2); Albumin/Globulin Ratio 0.9 (1.0-2.3); Alkaline Phosphatase 82 U/L (39-117); Bilirubin,Direct < 0.2 mg/dL (0-0.3); Bilirubin,Total 0.3 mg/dL (0.1-1.0); Blood Urea Nitrogen 26 mg/dL (8-23); Calcium 9.2 mg/dL (8.6-10.4); Carbon Dioxide 35 mmol/L (22-30); Chloride 91 mmol/L (96-108); Globulin 3.4 gm/dL (2.2-3.7); Glomerular Filtration Rate 60; Glucose 116 mg/dL (70-105); Lactate Dehydrogenase 170 U/L (135-225); Phosphorous 3.3 mg/dL (2.5-4.5); Triglycerides 188 mg/dL (<150); Uric Acid 6.6 mg/dL (2.5-8.0)
[2023-03-01] MEDS: FUROSEMIDE 40 MG TABLET PO SCH ×2 (07:21→16:03)
[2023-03-01] MEDS: OMEPRAZOLE 20 MG CAPSULE PO SCH ×2 (07:21→16:03)
[2023-03-01] MEDS: LEVOTHYROXINE 50 MCG TABLET PO SCH (07:21)
[2023-03-01] MEDS: INSULIN LISPRO 1 UNIT/0.01 ML UNIT SQ SCH ×4 (07:22→20:53)
[2023-03-01] MEDS: BUDESONIDE 0.5 MG/2 ML AMPUL.NEB NEB SCH ×2 (08:00→19:13)
[2023-03-01] MEDS ORDERED: POTASSIUM CHLORIDE 20 MEQ PACKET PO SCH (08:00)
[2023-03-01] MEDS: DULoxetine 30 MG CAPSULE PO SCH (08:23)
[2023-03-01] MEDS: BUPRENORPHINE HCL 2 MG TAB.SUBL SL SCH ×2 (08:23→20:54)
[2023-03-01] MEDS: THIAMINE 100 MG TABLET PO SCH (08:23)
[2023-03-01] MEDS: FOLIC ACID 1 MG TABLET PO SCH (08:23)
[2023-03-01] MEDS: DOCUSATE SODIUM 100 MG CAPSULE PO SCH ×2 (08:23→20:41)
[2023-03-01] MEDS: busPIRone 15 MG TABLET PO SCH ×2 (08:23→20:52)
[2023-03-01] MEDS: MULTIVIT,THER IRON,CA,FA & MIN 1 TABLET PO SCH (08:23)
[2023-03-01] MEDS: METOPROLOL SUCCINATE 50 MG TAB.XL.24H PO SCH ×2 (08:24→20:52)
[2023-03-01] MEDS: ENOXAPARIN 30 MG/0.3 ML SYRINGE SQ SCH ×2 (08:24→20:53)
[2023-03-01] MEDS: PRIMIDONE 50 MG TABLET PO SCH ×2 (08:24→21:29)
[2023-03-01] MEDS: CEFEPIME 2 GM VIAL IV SCH ×2 (08:33→21:02)
[2023-03-01] MEDS: ACETAMINOPHEN 325 MG TABLET PO PRN ×2 (11:04→19:07)
[2023-03-01] MEDS: DOXAZOSIN 1 MG TABLET PO SCH (20:51)
[2023-03-01] MEDS: DOXEPIN 25 MG CAPSULE PO SCH (21:29)
[2023-03-02] MEDS: IPRATROPIUM/ALBUTEROL 3 ML AMPUL.NEB NEB SCH ×4 (01:00→21:00)
[2023-03-02] MEDS: ACETAMINOPHEN 325 MG TABLET PO PRN ×3 (03:02→21:06)
[2023-03-02] MEDS: BUDESONIDE 0.5 MG/2 ML AMPUL.NEB NEB SCH ×2 (07:30→21:00)
[2023-03-02] MEDS: 0.9 % SODIUM CHLORIDE 10 ML SYRINGE IV SCH ×3 (07:49→21:09)
[2023-03-02] MEDS: INSULIN LISPRO 1 UNIT/0.01 ML UNIT SQ SCH ×4 (07:50→20:56)
[2023-03-02] MEDS: LEVOTHYROXINE 50 MCG TABLET PO SCH (07:52)
[2023-03-02] MEDS: FUROSEMIDE 40 MG TABLET PO SCH ×2 (07:52→16:09)
[2023-03-02] MEDS: OMEPRAZOLE 20 MG CAPSULE PO SCH ×2 (07:52→16:09)
[2023-03-02] MEDS: PRIMIDONE 50 MG TABLET PO SCH ×2 (08:10→21:03)
[2023-03-02] MEDS: busPIRone 15 MG TABLET PO SCH ×2 (08:10→21:05)
[2023-03-02] MEDS: DULoxetine 30 MG CAPSULE PO SCH (08:10)
[2023-03-02] MEDS: THIAMINE 100 MG TABLET PO SCH (08:10)
[2023-03-02] MEDS: METOPROLOL SUCCINATE 50 MG TAB.XL.24H PO SCH ×2 (08:10→21:07)
[2023-03-02] MEDS: FOLIC ACID 1 MG TABLET PO SCH (08:10)
[2023-03-02] MEDS: MULTIVIT,THER IRON,CA,FA & MIN 1 TABLET PO SCH (08:10)
[2023-03-02] MEDS: DOCUSATE SODIUM 100 MG CAPSULE PO SCH ×2 (08:10→21:07)
[2023-03-02] MEDS: BUPRENORPHINE HCL 2 MG TAB.SUBL SL SCH ×2 (08:10→21:04)
[2023-03-02] MEDS: ENOXAPARIN 30 MG/0.3 ML SYRINGE SQ SCH ×2 (08:18→21:02)
[2023-03-02] MEDS: CEFEPIME 2 GM VIAL IV SCH (08:18)
[2023-03-02] MEDS: HYDROmorphone 1 MG/ML SYRINGE IV PRN (14:28)
[2023-03-02] MEDS: DOXEPIN 25 MG CAPSULE PO SCH (21:05)
[2023-03-02] MEDS: DOXAZOSIN 1 MG TABLET PO SCH (21:07)
[2023-03-03] MEDS: IPRATROPIUM/ALBUTEROL 3 ML AMPUL.NEB NEB SCH ×2 (01:34→07:00)
[2023-03-03] MEDS: 0.9 % SODIUM CHLORIDE 10 ML SYRINGE IV SCH ×3 (05:59→20:25)
[2023-03-03 06:17] LABS: ABG Methemoglobin 0.3 % (0.4-1.5); Total Hemoglobin 10.8 gm/Dl (12.0-15.0); VBG Base Excess 8 (-2-3); VBG HCO3 33.4 mmol/L (24.0-28.0); VBG Oxygen Saturation 86.8 % (40.0-70.0); VBG PCO2 52.9 mmHg (41.0-51.0); VBG PH 7.42 U (7.32-7.42); VBG PO2 59.6 mmHg (25.0-40.0)
[2023-03-03 06:20] LABS: Basophils # (Auto) 0.11 K/mcL (0.00-0.30); Eosinophils # (Auto) 0.33 K/mcL (0.00-0.70); Hematocrit 28.7 % (34.1-44.9); Hemoglobin 9.1 g/dL (11.2-15.7); Lymphocytes # (Auto) 2.07 K/mcL (1.50-4.80); Lymphocytes % (Auto) 18.8 % (15.5-49.0); Mean Cell Volume 87.8 fL (80.0-100.0); Mean Corpuscular HGB Conc 31.7 g/dL (31.0-36.0); Mean Platelet Volume 9.3 fL (8.8-12.5); Monocytes # (Auto) 1.27 K/mcL (0.10-0.90); Monocytes % (Auto) 11.6 % (1.0-12.0); Platelet Count 310 K/mcL (140-440); RBC 3.27 M/mcL (3.59-5.38); Red Cell Distribution Width 14.6 % (11.5-14.5)
[2023-03-03 06:50] LABS: ALT/SGPT 22 U/L (<40); AST/SGOT 24 U/L (<32); Albumin/Globulin Ratio 0.9 (1.0-2.3); Alkaline Phosphatase 102 U/L (39-117); Bilirubin,Direct < 0.2 mg/dL (0-0.3); Bilirubin,Total 0.3 mg/dL (0.1-1.0); Blood Urea Nitrogen 18 mg/dL (8-23); Calcium 8.8 mg/dL (8.6-10.4); Carbon Dioxide 34 mmol/L (22-30); Chloride 90 mmol/L (96-108); Globulin 3.2 gm/dL (2.2-3.7); Glomerular Filtration Rate 68; Glucose 114 mg/dL (70-105); Lactate Dehydrogenase 221 U/L (135-225); Phosphorous 3.4 mg/dL (2.5-4.5); Triglycerides 210 mg/dL (<150); Uric Acid 6.3 mg/dL (2.5-8.0)
[2023-03-03] MEDS: BUDESONIDE 0.5 MG/2 ML AMPUL.NEB NEB SCH (07:00)
[2023-03-03] MEDS: INSULIN LISPRO 1 UNIT/0.01 ML UNIT SQ SCH ×4 (07:17→20:20)
[2023-03-03] MEDS: FUROSEMIDE 40 MG TABLET PO SCH ×2 (07:27→16:14)
[2023-03-03] MEDS: POTASSIUM CHLORIDE 20 MEQ TABLET PO PRN (07:28)
[2023-03-03] MEDS: LEVOTHYROXINE 50 MCG TABLET PO SCH (07:28)
[2023-03-03] MEDS: OMEPRAZOLE 20 MG CAPSULE PO SCH ×2 (07:29→16:28)
[2023-03-03] MEDS: MAGNESIUM SULFATE 2 GM/50 ML BAG IV PRN (07:31)
[2023-03-03] MEDS: THIAMINE 100 MG TABLET PO SCH (08:16)
[2023-03-03] MEDS: BUPRENORPHINE HCL 2 MG TAB.SUBL SL SCH ×2 (08:16→20:24)
[2023-03-03] MEDS: busPIRone 15 MG TABLET PO SCH ×2 (08:16→20:22)
[2023-03-03] MEDS: DOCUSATE SODIUM 100 MG CAPSULE PO SCH ×3 (08:17→20:26)
[2023-03-03] MEDS: METOPROLOL SUCCINATE 50 MG TAB.XL.24H PO SCH ×2 (08:17→20:23)
[2023-03-03] MEDS: MULTIVIT,THER IRON,CA,FA & MIN 1 TABLET PO SCH (08:17)
[2023-03-03] MEDS: DULoxetine 30 MG CAPSULE PO SCH (08:17)
[2023-03-03] MEDS: ENOXAPARIN 30 MG/0.3 ML SYRINGE SQ SCH ×2 (08:17→20:21)
[2023-03-03] MEDS: FOLIC ACID 1 MG TABLET PO SCH (08:17)
[2023-03-03] MEDS: PRIMIDONE 50 MG TABLET PO SCH ×2 (08:18→20:24)
[2023-03-03] MEDS: HYDROmorphone 1 MG/ML SYRINGE IV PRN (09:21)
[2023-03-03] MEDS: FLUTICASONE/SALMETEROL 250/50 INHALER #14 INH SCH ×2 (16:04→20:14)
[2023-03-03] MEDS: ACETAMINOPHEN 325 MG TABLET PO PRN (18:41)
[2023-03-03] MEDS: DOXAZOSIN 1 MG TABLET PO SCH (20:22)
[2023-03-03] MEDS: DOXEPIN 25 MG CAPSULE PO SCH (20:24)
[2023-03-04] MEDS: 0.9 % SODIUM CHLORIDE 10 ML SYRINGE IV SCH (06:03)
[2023-03-04 06:19] LABS: ALT/SGPT 21 U/L (<40); AST/SGOT 25 U/L (<32); Albumin 2.9 gm/dL (3.2-5.2); Albumin/Globulin Ratio 0.8 (1.0-2.3); Alkaline Phosphatase 91 U/L (39-117); Bilirubin,Direct < 0.2 mg/dL (0-0.3); Bilirubin,Total < 0.2 mg/dL (0.1-1.0); Blood Urea Nitrogen 18 mg/dL (8-23); Calcium 9.2 mg/dL (8.6-10.4); Carbon Dioxide 31 mmol/L (22-30); Chloride 90 mmol/L (96-108); Globulin 3.7 gm/dL (2.2-3.7); Glomerular Filtration Rate 68; Glucose 116 mg/dL (70-105); Lactate Dehydrogenase 161 U/L (135-225); Phosphorous 4.1 mg/dL (2.5-4.5); Triglycerides 217 mg/dL (<150); Uric Acid 6.9 mg/dL (2.5-8.0)
[2023-03-04] MEDS ORDERED: MAGNESIUM SULFATE 4 GM/100 ML BAG IV ONE (06:48)
[2023-03-04] MEDS: OMEPRAZOLE 20 MG CAPSULE PO SCH (07:54)
[2023-03-04] MEDS: INSULIN LISPRO 1 UNIT/0.01 ML UNIT SQ SCH (07:54)
[2023-03-04] MEDS: LEVOTHYROXINE 50 MCG TABLET PO SCH (07:54)
[2023-03-04] MEDS ORDERED: POTASSIUM CHLORIDE 20 MEQ TABLET PO SCH (08:00)
[2023-03-04] MEDS: IPRATROPIUM/ALBUTEROL 3 ML AMPUL.NEB NEB PRN (08:45)
[2023-03-04] MEDS ORDERED: FUROSEMIDE 40 MG TABLET PO SCH (09:00)
[2023-03-04] MEDS ORDERED: FLUTICASONE PROPIONATE SPRAY.NAS NS SCH (09:00)
[2023-03-04] MEDS: THIAMINE 100 MG TABLET PO SCH (09:42)
[2023-03-04] MEDS: DULoxetine 30 MG CAPSULE PO SCH (09:43)
[2023-03-04] MEDS: MULTIVIT,THER IRON,CA,FA & MIN 1 TABLET PO SCH (09:43)
[2023-03-04] MEDS: BUPRENORPHINE HCL 2 MG TAB.SUBL SL SCH (09:43)
[2023-03-04] MEDS: FOLIC ACID 1 MG TABLET PO SCH (09:43)
[2023-03-04] MEDS: ENOXAPARIN 30 MG/0.3 ML SYRINGE SQ SCH (09:43)
[2023-03-04] MEDS: METOPROLOL SUCCINATE 50 MG TAB.XL.24H PO SCH (09:43)
[2023-03-04] MEDS: DOCUSATE SODIUM 100 MG CAPSULE PO SCH (09:44)
[2023-03-04] MEDS: busPIRone 15 MG TABLET PO SCH (09:44)
[2023-03-04] MEDS: ACETAMINOPHEN 325 MG TABLET PO PRN (09:48)
[2023-03-04] MEDS: PRIMIDONE 50 MG TABLET PO SCH (09:49)
[2023-03-04] MEDS: FLUTICASONE/SALMETEROL 250/50 INHALER #14 INH SCH (11:15)
[2023-03-04 11:38] VITALS: TEMP 97.2; O2SAT 94
== END 2023-03-04 11:26 | DRG 189 ==
LOC: ED 14:28 → ICU 22:40
PROVIDERS: ADMIT Internal Medicine; ATTEND Internal Medicine

== ENCOUNTER 2024-05-05 12:38 | Inpatient (IN) ==
[2024-05-05] MEDS ORDERED: IOPAMIDOL 100 ML BOTTLE IV ONE (12:39)
[2024-05-05] MEDS: LORazepam 2 MG/ML VIAL IV ONE ×3 (12:57→16:14)
[2024-05-05] MEDS: POTASSIUM CHLORIDE 20 MEQ TABLET PO ONE (12:57)
[2024-05-05 13:07] LABS: Basophils # (Auto) 0.07 K/mcL (0.00-0.30); Basophils % (Auto) 0.7 % (0.0-2.0); Eosinophils # (Auto) 0.03 K/mcL (0.00-0.70); Eosinophils % (Auto) 0.3 % (0.0-7.0); Hematocrit 35.3 % (34.1-44.9); Hemoglobin 11.3 g/dL (11.2-15.7); Lymphocytes # (Auto) 0.96 K/mcL (1.50-4.80); Lymphocytes % (Auto) 9.6 % (15.5-49.0); Mean Cell Volume 90.1 fL (80.0-100.0); Mean Platelet Volume 8.7 fL (8.8-12.5); Monocytes # (Auto) 0.53 K/mcL (0.10-0.90); Monocytes % (Auto) 5.3 % (1.0-12.0); Neutrophils % (Auto) 83.3 % (38.0-78.0); Platelet Count 177 K/mcL (140-440); RBC 3.92 M/mcL (3.59-5.38); Red Cell Distribution Width 14.2 % (11.5-14.5)
[2024-05-05] MEDS: THIAMINE 100 MG in 0.9 % SODIUM CHLORIDE 50 ML IV ONE (13:17)
[2024-05-05] MEDS: FOLIC ACID 1 MG TABLET PO ONE (13:18)
[2024-05-05 13:26] LABS: ALT/SGPT 49 U/L (<40); AST/SGOT 126 U/L (<32); Albumin 4.1 gm/dL (3.2-5.2); Albumin/Globulin Ratio 1.1 (1.0-2.3); Alcohol,Blood 0.102 gm/dL (<0.010); Alkaline Phosphatase 94 U/L (39-117); Bilirubin,Total 0.7 mg/dL (0.1-1.0); Blood Urea Nitrogen 15 mg/dL (8-23); Calcium 9.1 mg/dL (8.6-10.4); Carbon Dioxide 15 mmol/L (22-30); Chloride 91 mmol/L (96-108); Globulin 3.6 gm/dL (2.2-3.7); Glomerular Filtration Rate 67; Glucose 143 mg/dL (70-105); Potassium 3.3 mmol/L (3.3-5.1); Sodium 139 mmol/L (133-145)
[2024-05-05] MEDS: 0.9 % SODIUM CHLORIDE 1,000 ML IV ONE (13:50)
[2024-05-05] MEDS: LORazepam 1 MG TABLET PO ONE (13:55)
[2024-05-05 19:32] LABS: Appearance,Urine CLEAR (Clear); Bacteria,Urine Mod /hpf (0); Bilirubin,Urine Negative (Negative); Color,Urine YELLOW; Glucose,Urine (UA) Negative (Negative); Ketones,Urine 20 mg/dL (Negative); Leukocyte Esterase,Urine Negative /uL (Negative); Nitrate,Urine Negative (Negative); Protein,Urine 100 mg/dL (Negative); Specific Gravity,Urine 1.044 (1.000-1.035); Urine Blood Negative (Negative); Urine Budding Yeast Few /hpf; Urine RBC 0 /hpf (0-3); Urine Squamous Epithelial Cell 18 /hpf (0-4); Urine WBC 4 /hpf (0-4); Urobilinogen,Urine Negative
[2024-05-05] MEDS ORDERED: morphine 4 MG/ML VIAL IV PRN (19:43)
[2024-05-05] MEDS ORDERED: NALOXONE HCL 0.4 MG/ML VIAL IV PRN (19:43)
[2024-05-05] MEDS ORDERED: BISACODYL 10 MG SUPP.RECT PR PRN (19:43)
[2024-05-05] MEDS ORDERED: ONDANSETRON 4 MG/2 ML VIAL IV PRN (19:43)
[2024-05-05] MEDS ORDERED: IPRATROPIUM/ALBUTEROL 3 ML AMPUL.NEB NEB PRN (19:43)
[2024-05-05] MEDS ORDERED: SENNOSIDES 1 TABLET PO PRN (19:43)
[2024-05-05 20:12] LABS: Amphetamine Screen,Urine None detected; Barbiturate Screen,Urine Suspect positive; Benzodiazepines Screen,Urine None detected; Cannabinoid Screen,Urine None detected; Cocaine Screen,Urine None detected; Fentanyl, Urine Screen None Detected; Opiate Screen,Urine None detected; Oxycodone, Urine Screen None detected; Phencyclidine Screen,Urine None detected
[2024-05-05] MEDS: LORazepam 2 MG/ML VIAL IV PRN (20:39)
[2024-05-05] MEDS: LACTATED RINGERS 1,000 ML IV SCH (20:39)
[2024-05-05] MEDS: LORazepam 2 MG/ML VIAL ONE (20:48)
[2024-05-05] MEDS: cefTRIAXone 1 GM VIAL IV SCH (21:47)
[2024-05-05] MEDS: PANTOPRAZOLE 40 MG VIAL IV SCH (21:47)
[2024-05-05] MEDS: HEPARIN 5,000 UNIT/ML VIAL SQ SCH (21:48)
[2024-05-05] MEDS: 0.9 % SODIUM CHLORIDE 10 ML SYRINGE IV SCH ×2 (21:48)
[2024-05-06 07:01] LABS: Basophils # (Auto) 0.04 K/mcL (0.00-0.30); Basophils % (Auto) 0.8 % (0.0-2.0); Eosinophils # (Auto) 0.11 K/mcL (0.00-0.70); Eosinophils % (Auto) 2.2 % (0.0-7.0); Hematocrit 32.1 % (34.1-44.9); Hemoglobin 10.3 g/dL (11.2-15.7); Lymphocytes # (Auto) 1.06 K/mcL (1.50-4.80); Mean Cell Volume 90.9 fL (80.0-100.0); Mean Corpuscular HGB Conc 32.1 g/dL (31.0-36.0); Mean Platelet Volume 9.2 fL (8.8-12.5); Monocytes # (Auto) 0.47 K/mcL (0.10-0.90); Monocytes % (Auto) 9.3 % (1.0-12.0); Neutrophils % (Auto) 66.3 % (38.0-78.0); Platelet Count 127 K/mcL (140-440); RBC 3.53 M/mcL (3.59-5.38); Red Cell Distribution Width 14.3 % (11.5-14.5); WBC 5.1 K/mcL (4.5-11.0)
[2024-05-06] MEDS: LEVOTHYROXINE 50 MCG TABLET PO SCH (07:13)
[2024-05-06 07:28] LABS: ALT/SGPT 35 U/L (<40); AST/SGOT 58 U/L (<32); Albumin 3.5 gm/dL (3.2-5.2); Albumin/Globulin Ratio 1.2 (1.0-2.3); Alkaline Phosphatase 77 U/L (39-117); Bilirubin,Direct 0.2 mg/dL (<0.3); Bilirubin,Total 0.4 mg/dL (0.1-1.0); Blood Urea Nitrogen 11 mg/dL (8-23); Carbon Dioxide 24 mmol/L (22-30); Chloride 93 mmol/L (96-108); Glomerular Filtration Rate 67; Glucose 110 mg/dL (70-105); Lactate Dehydrogenase 192 U/L (135-225); Phosphorous 1.5 mg/dL (2.5-4.5); Potassium 3.7 mmol/L (3.3-5.1); Sodium 135 mmol/L (133-145); Triglycerides 267 mg/dL (<150); Uric Acid 10.5 mg/dL (2.5-8.0)
[2024-05-06] MEDS: METOPROLOL SUCCINATE 50 MG TAB.XL.24H PO SCH (08:22)
[2024-05-06] MEDS: ACETAMINOPHEN 325 MG TABLET PO PRN (08:22)
[2024-05-06] MEDS: busPIRone 15 MG TABLET PO SCH (08:24)
[2024-05-06] MEDS: MULTIVIT,THER IRON,CA,FA & MIN 1 TABLET PO SCH (08:24)
[2024-05-06] MEDS: FLUTICASONE PROPIONATE SPRAY.NAS NS SCH (08:24)
[2024-05-06] MEDS: FOLIC ACID 1 MG TABLET PO SCH (08:24)
[2024-05-06] MEDS: DULoxetine 30 MG CAPSULE PO SCH ×2 (08:24→20:59)
[2024-05-06] MEDS: THIAMINE 100 MG in 0.9 % SODIUM CHLORIDE 50 ML IV SCH (08:43)
[2024-05-06] MEDS: PANTOPRAZOLE 40 MG TABLET PO SCH (08:51)
[2024-05-06] MEDS ORDERED: FOLIC ACID 1 MG TABLET PO SCH (09:00)
[2024-05-06] MEDS ORDERED: THIAMINE 100 MG in 0.9 % SODIUM CHLORIDE 50 ML IV SCH (09:00)
[2024-05-06] MEDS ORDERED: NON FORMULARY MEDICATION 1 DOSE MISCELL (Omeprazole 40 mg capsule,delayed release(DR/EC)) PO SCH (09:00)
[2024-05-06] MEDS: POTASSIUM PHOSPHATE 40 MEQ in DEXTROSE 5% IN WATER 500 ML IV ONE (10:07)
[2024-05-06] MEDS: FLUTICASONE/SALMETEROL 250/50 INHALER #14 INH SCH (10:26)
[2024-05-06] MEDS: NYSTATIN POWDER BOTTLE 15GM TOPICAL SCH (11:50)
[2024-05-06] MEDS: DOXAZOSIN 4 MG TABLET PO SCH (20:58)
[2024-05-06] MEDS: PRIMIDONE 50 MG TABLET PO SCH (20:58)
[2024-05-06] MEDS: DOXEPIN 25 MG CAPSULE PO SCH (20:58)
[2024-05-06] MEDS: MELATONIN 3 MG TABLET PO PRN (21:40)
[2024-05-07 05:57] LABS: Basophils # (Auto) 0.04 K/mcL (0.00-0.30); Basophils % (Auto) 0.9 % (0.0-2.0); Eosinophils # (Auto) 0.33 K/mcL (0.00-0.70); Eosinophils % (Auto) 7.2 % (0.0-7.0); Hematocrit 31.8 % (34.1-44.9); Hemoglobin 10.3 g/dL (11.2-15.7); Lymphocytes # (Auto) 1.12 K/mcL (1.50-4.80); Lymphocytes % (Auto) 24.4 % (15.5-49.0); Mean Cell Volume 90.3 fL (80.0-100.0); Mean Corpuscular HGB Conc 32.4 g/dL (31.0-36.0); Mean Platelet Volume 9.5 fL (8.8-12.5); Monocytes # (Auto) 0.33 K/mcL (0.10-0.90); Monocytes % (Auto) 7.2 % (1.0-12.0); Neutrophils % (Auto) 59.9 % (38.0-78.0); Platelet Count 115 K/mcL (140-440); RBC 3.52 M/mcL (3.59-5.38); Red Cell Distribution Width 13.8 % (11.5-14.5); WBC 4.6 K/mcL (4.5-11.0)
[2024-05-07 06:09] LABS: ALT/SGPT 31 U/L (<40); AST/SGOT 53 U/L (<32); Albumin 3.4 gm/dL (3.2-5.2); Albumin/Globulin Ratio 1.2 (1.0-2.3); Alkaline Phosphatase 74 U/L (39-117); Bilirubin,Direct 0.2 mg/dL (<0.3); Bilirubin,Total 0.4 mg/dL (0.1-1.0); Blood Urea Nitrogen 7 mg/dL (8-23); Carbon Dioxide 26 mmol/L (22-30); Chloride 96 mmol/L (96-108); Globulin 2.9 gm/dL (2.2-3.7); Glomerular Filtration Rate 77; Glucose 116 mg/dL (70-105); Lactate Dehydrogenase 180 U/L (135-225); Phosphorous 2.6 mg/dL (2.5-4.5); Potassium 3.4 mmol/L (3.3-5.1); Sodium 137 mmol/L (133-145); Triglycerides 442 mg/dL (<150); Uric Acid 8.6 mg/dL (2.5-8.0)
[2024-05-07] MEDS: MAGNESIUM OXIDE 400 MG TABLET PO SCH (09:25)
[2024-05-07] MEDS: MAGNESIUM SULFATE 2 GM/50 ML BAG IV ONE (10:23)
[2024-05-08 06:26] LABS: Basophils # (Auto) 0.03 K/mcL (0.00-0.30); Basophils % (Auto) 0.6 % (0.0-2.0); Eosinophils # (Auto) 0.29 K/mcL (0.00-0.70); Eosinophils % (Auto) 6.1 % (0.0-7.0); Hematocrit 32.7 % (34.1-44.9); Hemoglobin 10.5 g/dL (11.2-15.7); Lymphocytes # (Auto) 1.06 K/mcL (1.50-4.80); Lymphocytes % (Auto) 22.4 % (15.5-49.0); Mean Cell Volume 92.1 fL (80.0-100.0); Mean Corpuscular HGB Conc 32.1 g/dL (31.0-36.0); Monocytes # (Auto) 0.31 K/mcL (0.10-0.90); Monocytes % (Auto) 6.5 % (1.0-12.0); Neutrophils % (Auto) 64.2 % (38.0-78.0); Platelet Count 114 K/mcL (140-440); RBC 3.55 M/mcL (3.59-5.38); Red Cell Distribution Width 13.7 % (11.5-14.5); WBC 4.7 K/mcL (4.5-11.0)
[2024-05-08 06:28] LABS: ALT/SGPT 45 U/L (<40); AST/SGOT 82 U/L (<32); Albumin 3.4 gm/dL (3.2-5.2); Albumin/Globulin Ratio 1.1 (1.0-2.3); Alkaline Phosphatase 79 U/L (39-117); Bilirubin,Direct 0.2 mg/dL (<0.3); Bilirubin,Total 0.4 mg/dL (0.1-1.0); Blood Urea Nitrogen 7 mg/dL (8-23); Calcium 9.2 mg/dL (8.6-10.4); Carbon Dioxide 26 mmol/L (22-30); Chloride 96 mmol/L (96-108); Globulin 3.1 gm/dL (2.2-3.7); Glomerular Filtration Rate 77; Glucose 120 mg/dL (70-105); Lactate Dehydrogenase 190 U/L (135-225); Potassium 3.3 mmol/L (3.3-5.1); Sodium 135 mmol/L (133-145); Triglycerides 405 mg/dL (<150); Uric Acid 8.2 mg/dL (2.5-8.0)
[2024-05-09 06:41] LABS: Basophils # (Auto) 0.04 K/mcL (0.00-0.30); Basophils % (Auto) 0.7 % (0.0-2.0); Eosinophils % (Auto) 5.5 % (0.0-7.0); Hematocrit 31.9 % (34.1-44.9); Hemoglobin 10.2 g/dL (11.2-15.7); Lymphocytes # (Auto) 1.29 K/mcL (1.50-4.80); Lymphocytes % (Auto) 23.8 % (15.5-49.0); Mean Cell Volume 92.2 fL (80.0-100.0); Mean Platelet Volume 9.9 fL (8.8-12.5); Monocytes # (Auto) 0.41 K/mcL (0.10-0.90); Monocytes % (Auto) 7.6 % (1.0-12.0); Neutrophils % (Auto) 61.8 % (38.0-78.0); Platelet Count 135 K/mcL (140-440); RBC 3.46 M/mcL (3.59-5.38); WBC 5.4 K/mcL (4.5-11.0)
[2024-05-09 07:06] LABS: ALT/SGPT 60 U/L (<40); AST/SGOT 90 U/L (<32); Albumin 3.4 gm/dL (3.2-5.2); Albumin/Globulin Ratio 1.1 (1.0-2.3); Alkaline Phosphatase 90 U/L (39-117); Bilirubin,Direct < 0.2 mg/dL (0-0.3); Bilirubin,Total 0.3 mg/dL (0.1-1.0); Blood Urea Nitrogen 7 mg/dL (8-23); Calcium 9.3 mg/dL (8.6-10.4); Carbon Dioxide 25 mmol/L (22-30); Chloride 97 mmol/L (96-108); Globulin 3.2 gm/dL (2.2-3.7); Glomerular Filtration Rate 77; Glucose 120 mg/dL (70-105); Lactate Dehydrogenase 192 U/L (135-225); Phosphorous 3.8 mg/dL (2.5-4.5); Potassium 3.4 mmol/L (3.3-5.1); Sodium 136 mmol/L (133-145); Triglycerides 421 mg/dL (<150); Uric Acid 7.9 mg/dL (2.5-8.0)
[2024-05-09] MEDS: MAGNESIUM SULFATE 4 GM/100 ML BAG IV SCH (11:32)
[2024-05-09 16:50] VITALS: TEMP 98.1; O2SAT 93
== END 2024-05-09 16:05 | disposition home or self-care (01) | DRG 897 ==
LOC: ED 12:38 → ICU 19:40 → MEDSUR 05-08 15:41
PROVIDERS: ADMIT Student in an Organized Health Care Education/Training Program; ATTEND Student in an Organized Health Care Education/Training Program